=== PATIENT | male | born 1945 | race Caucasian/White ===

== ENCOUNTER 2018-06-10 20:43 | Inpatient (IN) ==
--- NOTE | 2018-06-10 22:03 | ED ---
HPI General Chief complaint: Extremity Problem,Nontraumatic Stated complaint: Joint Pain Time Seen by Provider: 06/10/18 21:54 History of Present Illness HPI narrative: This is a 73-year-old male with history of obesity, tobacco use, COPD, hyperlipidemia, hypertension, rheumatoid arthritis, presents via EMS for evaluation of pain. He reports over the past 3 months he has had progressively worsening pain primarily in the proximal arms the biceps/triceps regions. Reports that he has had some neck pain as well as intermittent left-sided chest pain as well. Reports that the chest pain is sharp, lasts for 5 minutes at a time, several times a day, no obvious aggravating or relieving factors. He reports chronic dyspnea secondary to COPD. He reports that he was seen for evaluation of the proximal arm pain 3 weeks ago at an outside hospital and he was told that it is likely his rheumatoid arthritis causing the pain. He disputes this, he reports that he has no joint pain and it does not feel like his rheumatoid arthritis pain. He also reports that his methotrexate was discontinued 3-4 months ago by his primary care physician as they wanted him to lose weight at the time. He denies any history of polymyalgia rheumatica. He is on a statin, simvastatin, which she has been on for several years. He denies any history of PE but currently he is essentially bedbound according to his brother who is at bedside. He has no other complaints at this time. Related Data Allergies Allergy/AdvReac Type Severity Reaction Status Date / Time codeine Allergy Mild MAKES ME Unverified 02/09/17 18:56 GO LOOPY benazepril Allergy Unknown Unverified 02/09/17 18:56 captopril Allergy Unknown Unverified 02/09/17 18:56 enalaprilat Allergy Unknown Unverified 02/09/17 18:56 fosinopril Allergy Unknown Unverified 02/09/17 18:56 lisinopril Allergy Unknown Unverified 02/09/17 18:56 quinapril Allergy Unknown Unverified 02/09/17 18:56 Review of Systems ROS: all other systems reviewed are negative [facility] Medical History Medical History Rheumatoid arthritis (Acute) Social History Social History Substance History: No History of Abuse Smoking Status: Current every day smoker Tobacco Type: Cigarettes How Often Do You Have a Drink Containing Alcohol: Never Recent Travel in [facility] within the Last 8 Weeks: No Recent Out of Country Travel within the Last 8 Weeks: No Immunization History Tetanus Immunization: Unsure Exam Narrative Exam Narrative: GENERAL: This is a morbidly obese disheveled male who is in no acute distress. SKIN: Warm and dry. HEAD: Atraumatic. Normocephalic. EYES: Pupils equal and round. No scleral icterus. No injection or drainage. ENT: No nasal bleeding or discharge. Mucous membranes pink and moist. NECK: Trachea midline. No JVD. CARDIOVASCULAR: Regular rate and rhythm. No murmur appreciated. RESPIRATORY: No accessory muscle use. Slight expiratory wheezing bilaterally. No crackles. GASTROINTESTINAL: Abdomen soft, non-tender, nondistended. Hepatic and splenic margins not palpable. MUSCULOSKELETAL: No obvious deformities. No clubbing. No cyanosis. No edema. NEUROLOGICAL: Awake and alert. No obvious cranial nerve deficits. Motor grossly within normal limits. Normal speech. PSYCHIATRIC: Appropriate mood and affect; insight and judgment normal. Course Consultations Consultation #1: dr rodríguez agrees to admit, vq pending Initial Documented Vital Signs Temperature 97.6 F 06/10/18 21:28 Pulse Rate 76 06/10/18 21:28 Respiratory Rate 24 06/10/18 21:28 Blood Pressure 117/79 06/10/18 21:28 Pulse Oximetry 96 06/10/18 21:28 Last Documented Vital Signs Temperature 97.6 F 06/10/18 21:28 Pulse Rate 76 06/10/18 21:28 Respiratory Rate 24 06/10/18 21:28 Blood Pressure 117/79 06/10/18 21:28 Pulse Oximetry 95 06/10/18 22:03 Medical Decision Making CARLOTA Attestation CARLOTA supervised visit: Yes Attestation: I, Dr. vega, have reviewed the advance practice practitioner's documentation and am in agreement, met with the patient face to face, made the diagnosis, and the medical decision making was done by me. *My assessment and Findings: 73 y/o male states that he has been having a couple weeks history of intermittent chest pain and bilateral upper arm weakness without associated joint pain. Lab work reveals renal failure. Patient states he is never had a kidney issue. CT pulmonary will be switched to V/Q study and patient will be admitted for further care. MDM Narrative Medical decision making narrative: The patient was placed on ECG monitoring pulse oximetry. Twelve-lead EKG obtained. Lab work, chest x-ray, CT pulmonary angiogram, CT cervical spine ordered. Full dose aspirin administered. Medical Screen Exam Complete: Yes Emergency Medical Condition: Yes Differential Diagnosis Differential Diagnosis: Polymyalgia rheumatica, radiculopathy, myositis, rhabdomyolysis, pulmonary embolism, pneumothorax, pericarditis, myocarditis Lab Data Result diagrams: 06/10/18 22:50 06/10/18 22:50 Lab Results 06/10/18 06/10/18 06/10/18 Range/Units 22:50 22:50 22:50 WBC 12.9 H (4.0-11.0) th/mm3 RBC 4.96 (4.50-5.90) mil/mm3 Hgb 15.3 (13.0-17.0) gm/dL Hct 43.7 (39.0-51.0) % MCV 88.0 (80.0-100.0) fL MCH 30.8 (27.0-34.0) pg MCHC 35.0 (32.0-36.0) % RDW 14.6 (11.6-17.2) % Plt Count 227 (150-450) th/mm3 MPV 7.9 (7.0-11.0) fL Neut % (Auto) 78.0 H (16.0-70.0) % Lymph % (Auto) 16.0 (9.0-44.0) % [place] % (Auto) 5.3 (0.0-8.0) % Eos % (Auto) 0.5 (0.0-4.0) % Baso % (Auto) 0.2 (0.0-2.0) % Neut # (Auto) 10.1 H (1.8-7.7) th/mm3 Lymph # (Auto) 2.1 (1.0-4.8) th/mm3 [place] # (Auto) 0.7 (0.0-0.9) th/mm3 Eos # (Auto) 0.1 (0.0-0.4) th/mm3 Baso # (Auto) 0.0 (0.0-0.2) th/mm3 WBC Differential . Differential Comment Auto diff final ESR 5 (0-20) mm/hr PT 10.8 (9.8-11.6) sec INR 1.1 Ratio APTT 28.0 (23.4-31.7) sec Sodium (136-145) meq/L Potassium (3.5-5.1) meq/L Chloride (98-107) meq/L Carbon Dioxide (21.0-32.0) meq/L Anion Gap (5-15) meq/L BUN (7-18) mg/dL Creatinine (0.60-1.30) mg/dL Estimated GFR (>89) mL/min Random Glucose (74-106) mg/dL Calcium (8.5-10.1) mg/dL Calcium Adj for Albumin (8.5-10.1) mg/dL Magnesium (1.5-2.5) mg/dL Total Bilirubin (0.2-1.0) mg/dL AST (15-37) U/L ALT (12-78) U/L Alkaline Phosphatase (45-117) U/L Total Creatine Kinase (39-308) U/L Troponin I (0.02-0.05) ng/mL Total Protein (6.4-8.2) g/dL Albumin (3.4-5.0) g/dL 06/10/18 Range/Units 22:50 WBC (4.0-11.0) th/mm3 RBC (4.50-5.90) mil/mm3 Hgb (13.0-17.0) gm/dL Hct (39.0-51.0) % MCV (80.0-100.0) fL MCH (27.0-34.0) pg MCHC (32.0-36.0) % RDW (11.6-17.2) % Plt Count (150-450) th/mm3 MPV (7.0-11.0) fL Neut % (Auto) (16.0-70.0) % Lymph % (Auto) (9.0-44.0) % [place] % (Auto) (0.0-8.0) % Eos % (Auto) (0.0-4.0) % Baso % (Auto) (0.0-2.0) % Neut # (Auto) (1.8-7.7) th/mm3 Lymph # (Auto) (1.0-4.8) th/mm3 [place] # (Auto) (0.0-0.9) th/mm3 Eos # (Auto) (0.0-0.4) th/mm3 Baso # (Auto) (0.0-0.2) th/mm3 WBC Differential Differential Comment ESR (0-20) mm/hr PT (9.8-11.6) sec INR Ratio APTT (23.4-31.7) sec Sodium 143 (136-145) meq/L Potassium 3.6 (3.5-5.1) meq/L Chloride 109 H (98-107) meq/L Carbon Dioxide 22.0 (21.0-32.0) meq/L Anion Gap 12 (5-15) meq/L BUN 31 H (7-18) mg/dL Creatinine 3.06 H (0.60-1.30) mg/dL Estimated GFR 20 L (>89) mL/min Random Glucose 108 H (74-106) mg/dL Calcium 7.1 L* (8.5-10.1) mg/dL Calcium Adj for Albumin 8.1 L (8.5-10.1) mg/dL Magnesium 1.6 (1.5-2.5) mg/dL Total Bilirubin 0.9 (0.2-1.0) mg/dL AST 19 (15-37) U/L ALT 19 (12-78) U/L Alkaline Phosphatase 65 (45-117) U/L Total Creatine Kinase 70 (39-308) U/L Troponin I Less than 0.02 L (0.02-0.05) ng/mL Total Protein 6.4 (6.4-8.2) g/dL Albumin 2.8 L (3.4-5.0) g/dL Imaging Data Radiologist's impression: Chest X-Ray 06/10/18 21:58 CONCLUSION: 1. Mild left lower lung zone airspace disease. Cervical Spine CT 06/11/18 00:01 CONCLUSION: 1. Degenerative change throughout the cervical spine as described above. 2. Acute bony abnormality is not seen. Discharge Plan Discharge Disposition Patient Disposition: ED Admit(ED Internal Use Only) Discharge Order Discharge Orders: ED Use Only Admit Order (Routine); Ordered 06/11/18 Ordered By: Deepthi Vega Discharge Details Diagnosis: Acute renal failure, Chest pain Physicians Team ED Provider: Deepthi Vega ED Midlevel Provider: Rick Hernandez Primary Care Provider: Domo Johnson Status ED Status: Admitted Patient
--- NOTE | 2018-06-10 22:35 | XR ---
EXAM DATE: 06/10/2018 10:32 PM EST AGE/SEX: 73 years / Male INDICATIONS: Shortness of breath. CLINICAL DATA: This is the patient's initial encounter. Patient reports that signs and symptoms have been present for 1 day and indicates a pain score of 0/10. MEDICAL/SURGICAL HISTORY: None. None. COMPARISON: No prior exams available for comparison. FINDINGS: Hazy opacity in the lateral left lower lung zone. The cardiomediastinal contours are unremarkable. O sseous structures are intact. CONCLUSION: 1. Mild left lower lung zone airspace disease. Electronically signed by: Teddy Chambers MD Board Certified Radiologist 06/10/2018 10:34 PM E
[2018-06-10 23:18] LABS: Baso % (Auto) 0.2 % (0.0-2.0); Eos # (Auto) 0.1 th/mm3 (0.0-0.4); Eos % (Auto) 0.5 % (0.0-4.0); Hematocrit 43.7 % (39.0-51.0); Hemoglobin 15.3 gm/dL (13.0-17.0); Lymph # (Auto) 2.1 th/mm3 (1.0-4.8); Mean Corpuscular Hemoglobin 30.8 pg (27.0-34.0); Mean Platelet Volume 7.9 fL (7.0-11.0); Mono # (Auto) 0.7 th/mm3 (0.0-0.9); Mono % (Auto) 5.3 % (0.0-8.0); Neut # (Auto) 10.1 th/mm3 (1.8-7.7); Platelet Count 227 th/mm3 (150-450); Red Blood Count 4.96 mil/mm3 (4.50-5.90); Red Cell Distribution Width 14.6 % (11.6-17.2); White Blood Count 12.9 th/mm3 (4.0-11.0)
[2018-06-10] MEDS ORDERED: Sod Chloride 0.9% Inj 1,000 ML IV.SIG SCH (23:45)
[2018-06-10 23:49] LABS: INR 1.1 Ratio; Prothrombin Time 10.8 sec (9.8-11.6)
[2018-06-10 23:50] LABS: Alanine Aminotransferase 19 U/L (12-78); Albumin 2.8 g/dL (3.4-5.0); Alkaline Phosphatase 65 U/L (45-117); Anion Gap 12 meq/L (5-15); Aspartate Aminotransferase 19 U/L (15-37); Blood Urea Nitrogen 31 mg/dL (7-18); Calcium 7.1 mg/dL (8.5-10.1); Chloride 109 meq/L (98-107); Glomerular Filtration Rate 20 mL/min (>89); Glucose,Random 108 mg/dL (74-106); Magnesium 1.6 mg/dL (1.5-2.5); Potassium 3.6 meq/L (3.5-5.1); Sodium 143 meq/L (136-145); Total Protein 6.4 g/dL (6.4-8.2)
[2018-06-10 23:51] LABS: Creatine Kinase 70 U/L (39-308)
--- NOTE | 2018-06-11 00:24 | CT ---
EXAM DATE: 06/11/2018 12:14 AM EST AGE/SEX: 73 years / Male INDICATIONS: Neck pain. CLINICAL DATA: This is the patient's initial encounter. Patient reports that signs and symptoms have been present for 1 day and indicates a pain score of 7/10. MEDICAL/SURGICAL HISTORY: Rheumatoid arthritis. None. RADIATION DOSE: 27.10 CTDI (mGy) COMPARISON: No prior exams available for comparison. TECHNIQUE: Contiguous axial images were obtained using helical multirow detector technique. The vol umetric data was post-processed with multiplanar reconstruction in oblique axial, sagittal, and coron al planes. Using automated exposure control and adjustment of the mA and/or kV according to patient s ize, radiation dose was kept as low as reasonably achievable to obtain optimal diagnostic quality juliana ges. DICOM format image data is available electronically for review and comparison. FINDINGS: Vertebrae: Normal vertebral body height. Alignment: Normal. No subluxation. C2-3: The bony spinal canal is normal in size. No evidence of disc bulge or herniation. The neural foramina are bilaterally patent. There is bilateral facet hypertrophy being worse on the right. C3-4: The bony spinal canal is normal in size. There is mild posterior osteophytic ridging seen at t he left lateral recess region without significant stenosis. No evidence of disc bulge or herniation. There is bilateral facet hypertrophy. There is mild narrowing of the left neural foramina at the rig ht neural foramina is patent. C4-5: The disc demonstrates decreased height. There is slight bulging without significant stenosis. There is facet hypertrophy being worse on the left. The neural foramina are grossly patent. C5-6: There appears to be fusion at this level. Significant impression on thecal sac is not seen. Th e neural foramina patent bilaterally. There is some degree of fusion at the facet joints. C6-7: The bony spinal canal is normal in size. No evidence of disc bulge or herniation. The neural foramina are bilaterally patent. There is facet hypertrophy. C7-T1: The bony spinal canal is normal in size. No evidence of disc bulge or herniation. The neura l foramina are bilaterally patent. There is facet hypertrophy. CONCLUSION: 1. Degenerative change throughout the cervical spine as described above. 2. Acute bony abnormality is not seen. Electronically signed by: Domo Guzman MD Board Certified Radiologist 06/11/2018 12:23 AM EST
[2018-06-11] MEDS ORDERED: Acetaminophen 325 MG Tablet PO PRN (02:10)
[2018-06-11] MEDS ORDERED: Bisacodyl 10 MG Supp RECTAL PRN (02:10)
--- NOTE | 2018-06-11 02:27 | NM ---
EXAM DATE: 06/11/2018 2:02 AM EST AGE/SEX: 73 years / Male INDICATIONS: For 3 months patient has had arm pain, neck pain and left chest pain with chronic dyspn ea. CLINICAL DATA: This is the patient's initial encounter. Patient reports that signs and symptoms have been present for 3 months and indicates a pain score of 5/10. MEDICAL/SURGICAL HISTORY: Rheumatoid arthritis. Chronic obstructive pulmonary disease. Hypert ension. Smoker. None. COMPARISON: [facility], CHEST 1V SINGLE AP, 06/10/2018. . DOSE: 1 mCi Tc99m DTPA aerosol 8.8 mCi Tc99m MAA IV TECHNIQUE: Following five minutes of tidal breathing of DTPA aerosol, planar images of the lungs wer e performed in eight projections. The patient was then injected with MAA, and eight-view perfusion s can was performed. FINDINGS: There is a heterogeneous pattern of aerosol delivery to the periphery of both lungs. The perfusion lung scan demonstrates a homogenous pattern of uptake in both lungs. There is a small s ubsegmental defect seen at the posterior right lower lung. This appears mass. No mismatch defects are seen. CONCLUSION: Low probability for pulmonary embolus. Electronically signed by: Domo Guzman MD Board Certified Radiologist 06/11/2018 2:26 AM EST
[2018-06-11 04:02] LABS: Creatine Kinase 130 U/L (39-308)
[2018-06-11] MEDS: Sod Chloride 0.9% Inj 1,000 ML IV.CONT SCH ×2 (05:53→17:25)
--- NOTE | 2018-06-11 10:17 | ECG ---
Date Performed: 06/11/2018 Time Performed: 03:41:10 PTAGE: 73 years EKG: Sinus rhythm NORMAL ECG Since the PREVIOUS TRACING , no significant change noted PREVIOUS TRACIN06/10/2018 22.29 DOCTOR: Christopher Edgar Interpretating Date/Time 06/11/2018 10:15:43
--- NOTE | 2018-06-11 10:17 | ECG ---
Date Performed: 06/10/2018 Time Performed: 22:29:11 PTAGE: 73 years EKG: Sinus rhythm NORMAL ECG Since the PREVIOUS TRACING , no significant change noted PREVIOUS TRACIN11/19/2005 16.59 DOCTOR: Christopher Edgar Interpretating Date/Time 06/11/2018 10:15:56
--- NOTE | 2018-06-11 11:01 | P.CONNP ---
<RafTianna - Last Filed: 06/11/18 10:46> History of Present Illness Service: Nephrology Consult date: 06/11/18 Requesting Physician: Moy Bradley Reason for Consult: Acute kidney injury Primary Care Provider: Domo Johnson History of Present Illness: Patient is a 73 year old male with past medical history of COPD, HTN, HLD, and RA. Presented to the emergency with increasing upper extremity pain and weakness. This has been going on for about six months but has progressively gotten worse. Also complaining of left sided chest pain which is stabbing. Has a been going on for 4-5 months. Nephrology is consulted for acute kidney injury with a creatinine of 3.06. Does not report previous history of chronic kidney disease. Reports chronic shortness of breath which is slightly worse than normal, chest pain, and Bilateral upper extremity pain. Denies any nausea , vomiting or diarrhea. But reports that possibly has not been taking in very many oral fluids. Also reports that he has not urinated since yesterday and does not have the urge. Review of Systems All other systems reviewed negative except as stated in HPI PMFSH - History History Provided By: Patient - Medical History Medical History: Medical History (Last Reviewed 06/11/18 @ 09:45 by Maryuri Guzman) Rheumatoid arthritis - Tobacco History Second Hand Smoke Exposure: Yes Tobacco Use In Past 30 Days: Yes Smoking Status: Heavy tobacco smoker Tobacco Type: Cigarettes - Alcohol History How Often Do You Have a Drink Containing Alcohol: Monthly or less - Substance Use History Substance History: No History of Abuse - Travel History Recent Travel in the [place] Within the Last 8 Weeks: No Recent Travel Out of the Country Within the Last 8 Weeks: No - Immunization History Tetanus Immunization: Unsure Hx Influenza Vaccine This Season: No Medications and Allergies Allergies Allergy/AdvReac Type Severity Reaction Status Date / Time codeine Allergy Mild MAKES ME Unverified 02/09/17 18:56 GO LOOPY benazepril Allergy Unknown Unverified 02/09/17 18:56 captopril Allergy Unknown Unverified 02/09/17 18:56 enalaprilat Allergy Unknown Unverified 02/09/17 18:56 fosinopril Allergy Unknown Unverified 02/09/17 18:56 lisinopril Allergy Unknown Unverified 02/09/17 18:56 quinapril Allergy Unknown Unverified 02/09/17 18:56 Home Medications Medication Instructions Recorded Confirmed Type albuterol sulfate [Ventolin HFA] 2 puff INHALATION QID PRN 06/11/18 06/11/18 History hydrocodone-acetaminophen 1 tab PO TID PRN 06/11/18 06/11/18 History hydroxychloroquine 200 mg PO DAILY 06/11/18 06/11/18 History methotrexate sodium 15 mg PO QWEEK 06/11/18 06/11/18 History naproxen 500 mg PO BID PRN 06/11/18 06/11/18 History omeprazole 20 mg PO DAILY 06/11/18 06/11/18 History prednisone 5 mg PO DAILY 06/11/18 06/11/18 History pregabalin [Lyrica] 200 mg PO BID 06/11/18 06/11/18 History sertraline 25 mg PO DAILY 06/11/18 06/11/18 History simvastatin 20 mg PO QPM 06/11/18 06/11/18 History tizanidine 4 mg PO TID 06/11/18 06/11/18 History valsartan-hydrochlorothiazide 1 tab PO DAILY 06/11/18 06/11/18 History Active Medications: Active Medications Acetaminophen (Tylenol) 650 mg PO Q4H PRN PRN Reason: Temp > 100.4 Al Hydroxide/Mg Hydroxide (Milk Of Magnesia Liq) 30 ml PO Q12H PRN PRN Reason: Mild Constipation Bisacodyl (Dulcolax Supp) 10 mg RECTAL DAILY PRN PRN Reason: SEVERE CONSITIPATION Sodium Chloride (Ns Inj) 1,000 mls @ 100 mls/hr IV.CONT .Q10H DOYLE Last Admin: 06/11/18 05:53 Dose: 100 mls/hr Lactulose (Lactulose Liq) 30 ml PO DAILY PRN PRN Reason: SEVERE CONSITIPATION Ondansetron HCl (Zofran Inj) 4 mg IV.PUSH Q6H PRN PRN Reason: NAUSEA OR VOMITING Sennosides (Senokot) 17.2 mg PO Q12H PRN PRN Reason: Moderate Constipation Sodium Chloride (Ns Flush) 2 ml IV.FLUSH BID DOYLE Sodium Chloride (Ns Flush) 2 ml IV.FLUSH PRN PRN PRN Reason: FLUSH AFTER USING IV ACCESS Exam Vital signs: Vital Signs 06/10/18 21:28 06/10/18 21:58 06/10/18 22:03 Temperature 97.6 F Pulse Rate 76 76 Respiratory Rate 24 Blood Pressure 117/79 128/71 Pulse Oximetry 96 96 95 06/11/18 03:15 06/11/18 04:00 06/11/18 08:00 Temperature 97.1 F L 97.5 F L Pulse Rate 72 63 69 Respiratory Rate 18 16 Blood Pressure 122/56 L 116/54 L 112/55 L Pulse Oximetry 94 L 94 L 93 L 06/11/18 08:02 Temperature Pulse Rate Respiratory Rate Blood Pressure Pulse Oximetry 93 L Intake & Output 06/10/18 06/11/18 06/11/18 18:59 06:59 18:59 Intake Total 1480 / 1480 Balance 1480 / 1480 Weight 148.1 kg Intake: IV 1000 / 1000 NS Inj 1,000 ML @ 1000 mls/hr 1000 / 1000 IV.SIG BOLUS DOYLE Rx#:[id number] Oral 480 / 480 Other: Date of Last Bowel Movement 06/10/18 Weight On Admission 147.418 kg Narrative: GENERAL: Alert and oriented. Obese. No obvious distress. SKIN: Warm and dry. NECK: Supple, trachea midline. No JVD CARDIOVASCULAR: Regular rate and rhythm without murmurs, gallops, or rubs. RESPIRATORY: Breath sounds equal bilaterally. No accessory muscle use. GASTROINTESTINAL: Abdomen soft, non-tender. Positive bowel sounds. MUSCULOSKELETAL: No cyanosis, or edema. BACK: Nontender without obvious deformity. No CVA tenderness. Results - Lab Results 06/10/18 22:50 06/10/18 22:50 Most recent lab results Calcium 7.1 mg/dL (8.5-10.1) L* 06/10/18 22:50 Magnesium 1.6 mg/dL (1.5-2.5) 06/10/18 22:50 - Image Kidney/bladder ultrasound: pending Assessment and Plan - Assessment (1) Acute renal failure Code(s): N17.9 - Acute kidney failure, unspecified Status: Acute Plan: Acute renal failure with creatinine of 3.09 MELISA prerenal vs ATN from possible poor intake or medication. On naproxen and Valsartan/HCTZ at home. Does not report any chronic kidney disease and no baseline available Renal ultrasound ordered UA, Urine creatinine, osmolarity, and sodium ordered Reports that he has not had any urinary output since yesterday. Will order bladder scan may need indwelling [place] catheter if has retention. Recommend to continue IVF Will monitor urinary output and BMP Labs ordered for AM (2) Rheumatoid arthritis Code(s): M06.9 - Rheumatoid arthritis, unspecified Status: Acute Plan: Possibly having flare with bilateral upper extremity discomfort. (3) Chest pain Code(s): R07.9 - Chest pain, unspecified Status: Acute Plan: Complaining of intermittent chest pain. Troponin have remained negative. (4) Chronic obstructive lung disease Code(s): J44.9 - Chronic obstructive pulmonary disease, unspecified Status: Acute Plan: Has chronic shortness of breath. (5) Hypertension Code(s): I10 - Essential (primary) hypertension Status: Acute Plan: Well controlled. Not on any blood pressure medication currently. <Abel Overton - Last Filed: 06/11/18 21:02> History of Present Illness Primary Care Provider: Domo Johnson [facility] - Medical History Medical History: Medical History (Last Reviewed 06/11/18 @ 09:45 by Maryuri Guzman) Rheumatoid arthritis Medications and Allergies Active Medications: Active Medications Acetaminophen (Tylenol) 650 mg PO Q4H PRN PRN Reason: Temp > 100.4 Hydrocodone Bitart/Acetaminophen (Ora 10/325) 1 tab PO TID PRN PRN Reason: Pain 1-10 Al Hydroxide/Mg Hydroxide (Milk Of Magnesia Liq) 30 ml PO Q12H PRN PRN Reason: Mild Constipation Bisacodyl (Dulcolax Supp) 10 mg RECTAL DAILY PRN PRN Reason: SEVERE CONSITIPATION Heparin Sodium (Porcine) (Heparin Inj) 5,000 units SQ Q8HR DOYLE Lactulose (Lactulose Liq) 30 ml PO DAILY PRN PRN Reason: SEVERE CONSITIPATION Ondansetron HCl (Zofran Inj) 4 mg IV.PUSH Q6H PRN PRN Reason: NAUSEA OR VOMITING Pantoprazole Sodium (Protonix) 20 mg PO DAILY DO[facility] Prednisone (Deltasone) 5 mg PO DAILY DOYLE Last Admin: 06/11/18 18:22 Dose: 5 mg Pregabalin (Lyrica) 200 mg PO BID DOYLE Sennosides (Senokot) 17.2 mg PO Q12H PRN PRN Reason: Moderate Constipation Sertraline HCl (Zoloft) 25 mg PO DAILY [facility] Last Admin: 06/11/18 18:21 Dose: 25 mg Sodium Chloride (Ns Flush) 2 ml IV.FLUSH BID [facility] Last Admin: 06/11/18 13:51 Dose: Not Given Sodium Chloride (Ns Flush) 2 ml IV.FLUSH PRN PRN PRN Reason: FLUSH AFTER USING IV ACCESS Tizanidine HCl (Zanaflex) 4 mg PO TID [facility] Exam Vital signs: Vital Signs 06/10/18 21:28 06/10/18 21:58 06/10/18 22:03 Temperature 97.6 F Pulse Rate 76 76 Respiratory Rate 24 Blood Pressure 117/79 128/71 Pulse Oximetry 96 96 95 06/11/18 03:15 06/11/18 04:00 06/11/18 08:00 Temperature 97.1 F L 97.5 F L Pulse Rate 72 63 69 Respiratory Rate 18 16 Blood Pressure 122/56 L 116/54 L 112/55 L Pulse Oximetry 94 L 94 L 93 L 06/11/18 08:02 06/11/18 12:00 06/11/18 15:20 Temperature 97.7 F Pulse Rate 67 68 Respiratory Rate 16 20 Blood Pressure 95/53 L 106/56 L Pulse Oximetry 93 L 92 L 97 Intake & Output 06/11/18 06/11/18 06/12/18 06:59 18:59 06:59 Intake Total 1480 / 1480 1480 / 1480 Output Total 350 / 350 Balance 1480 / 1480 1130 / 1130 Weight 148.1 kg Intake: IV 1000 / 1000 1000 / 1000 NS Inj 1,000 ML @ 100 mls/hr IV 1000 / 1000 .CONT .Q10H [facility] Rx#:[id number] NS Inj 1,000 ML @ 1000 mls/hr 1000 / 1000 IV.SIG BOLUS [facility] [place] Rx#:[id number] Oral 480 / 480 480 / 480 Output: Urine 350 / 350 Other: Date of Last Bowel Movement 06/10/18 06/10/18 Weight On Admission 147.418 kg Results - Lab Results 06/11/18 11:23 06/11/18 11:23 Most recent lab results Calcium 8.6 mg/dL (8.5-10.1) D 06/11/18 11:23 Phosphorus 3.5 mg/dL (2.5-4.9) 06/11/18 11:23 Magnesium 1.6 mg/dL (1.5-2.5) 06/10/18 22:50 Assessment and Plan - Assessment (1) Acute renal failure Code(s): N17.9 - Acute kidney failure, unspecified Status: Acute Plan: Patient seen and examined, agree with above. Patient has MELISA, possibly pre renal and also related to NSAID. Told to avoid NSAID,continue IVF. Bladder scan, urine sodium, check UA to see if has proteinuria. (2) Rheumatoid arthritis Code(s): M06.9 - Rheumatoid arthritis, unspecified Status: Acute (3) Chest pain Code(s): R07.9 - Chest pain, unspecified Status: Acute (4) Chronic obstructive lung disease Code(s): J44.9 - Chronic obstructive pulmonary disease, unspecified Status: Acute (5) Hypertension Code(s): I10 - Essential (primary) hypertension Status: Acute
--- NOTE | 2018-06-11 12:31 | US ---
EXAM DATE: 06/11/2018 12:27 PM EST AGE/SEX: 73 years / Male INDICATIONS: Increased BUN and creatinine. CLINICAL DATA: This is the patient's initial encounter. Patient reports that signs and symptoms have been present for 1 day and indicates a pain score of 0/10. MEDICAL/SURGICAL HISTORY: . Obesity. Smoker. COPD. Hyperlipidemia. Hypertension. Rheumatoi d arthritis. None. COMPARISON: No prior exams available for comparison. MEASUREMENTS: Right Kidney:__11.3 x 6.2 x 4.9 cm Left Kidney:__11.5 x 4.8 x 4.8 cm FINDINGS: Right Kidney: Normal echogenicity and cortical thickness. No mass or hydronephrosis. Left Kidney: Normal echogenicity and cortical thickness. No mass or hydronephrosis. Bladder: Within normal limits given the degree of distension. Other: None. CONCLUSION: 1. Negative renal sonogram. Electronically signed by: Edel Lambert MD Board Certified Radiologist 06/11/2018 12:29 PM EST
[2018-06-11 12:48] LABS: Hematocrit 46.6 % (39.0-51.0); Hemoglobin 15.3 gm/dL (13.0-17.0); Mean Corpuscular HGB Conc 32.8 % (32.0-36.0); Mean Corpuscular Hemoglobin 29.9 pg (27.0-34.0); Mean Corpuscular Volume 90.9 fL (80.0-100.0); Mean Platelet Volume 8.4 fL (7.0-11.0); Platelet Count 260 th/mm3 (150-450); Red Blood Count 5.12 mil/mm3 (4.50-5.90); Red Cell Distribution Width 15.2 % (11.6-17.2); White Blood Count 12.4 th/mm3 (4.0-11.0)
[2018-06-11 13:18] LABS: Phosphorus 3.5 mg/dL (2.5-4.9)
[2018-06-11 13:20] LABS: Creatine Kinase 102 U/L (39-308)
[2018-06-11 16:08] LABS: Carbon Dioxide 19.5 meq/L (21.0-32.0)
[2018-06-11 16:09] LABS: Calcium 8.6 mg/dL (8.5-10.1)
--- NOTE | 2018-06-11 17:40 | P.HPIM ---
History of Present Illness Primary Care Physician: pain all over but mostly started approximately 1 year ago with left shoulder pain and tingling in the left arm stopping at the elbow with associated soreness.Domo Johnson Patient is a pleasant 73-year-old male with past medical history of rheumatoid arthritis, hyperlipidemia, reflux disease, and hypertension who presents to the emergency department with diffuse complaints of upper extremity pain and weakness. Patient reports his symptoms are approximately 6 months old but it progressively worsened over the last 3-4 months prompting him to come to the emergency department. Patient reports that he initially experienced afterwards symptoms progressed to the right side of his head and body and has been progressive ever since. Review of systems positive for headache, associated chest pain, shortness of breath (patient reports chronic shortness of breath but it may have slightly worsened). Patient denied slurred speech, changes in hearing, no changes in vision, loss of consciousness, palpitations, near-syncope , trauma, or new skin changes. Of note patient reports that he was previously taking methotrexate and that it was discontinued by an outpatient doctor for unclear reasons as patient believes it had to do with him needing to lose weight. In emergency department patient had imaging including a CT of the spine which was negative for dislocation or fracture only degenerative changes throughout the cervical spine. Pulmonary perfusion testing negative for evidence of pulmonary embolism. Patient noted to have evidence of acute kidney injury without prior history of renal dysfunction. Patient was started on IV fluid hydration. Diagnosis (1) Acute renal failure: (2) Rheumatoid arthritis: (3) Chest pain: (4) Chronic obstructive lung disease: (5) Hypertension: Inpatient Certification Inpatient Certification: I certify that the inpatient services were ordered in accordance with Medicare regulations governing the order. This includes certification that hospital inpatient services are reasonable and necessary and in the case of services not specified as inpatient-only under 42 CFR 419.22(n), that they are appropriately provided as inpatient services in accordance to with the 2-midnight benchmark under 43 CFR 412.3(e) Estimated Total Length of Stay (Days): 3 Plans for Post Hospital Care: Home Review of Systems Review of Systems: all other systems reviewed are negative [facility] Medical History Medical History Rheumatoid arthritis (Acute) Social History Social History Substance History: No History of Abuse Second Hand Smoke Exposure: Yes Smoking Status: Current every day smoker Tobacco Type: Cigarettes How Often Do You Have a Drink Containing Alcohol: Monthly or less Recent Travel in [place] within the Last 8 Weeks: No Recent Out of Country Travel within the Last 8 Weeks: No Immunization History Tetanus Immunization: Unsure Hx Influenza Vaccine This Season: No Medications and Allergies Allergies Allergy/AdvReac Type Severity Reaction Status Date / Time codeine Allergy Mild MAKES ME Unverified 02/09/17 18:56 GO LOOPY benazepril Allergy Unknown Unverified 02/09/17 18:56 captopril Allergy Unknown Unverified 02/09/17 18:56 enalaprilat Allergy Unknown Unverified 02/09/17 18:56 fosinopril Allergy Unknown Unverified 02/09/17 18:56 lisinopril Allergy Unknown Unverified 02/09/17 18:56 quinapril Allergy Unknown Unverified 02/09/17 18:56 Home Medications Medication Instructions Recorded Confirmed Type albuterol sulfate [Ventolin HFA] 2 puff INHALATION QID PRN 06/11/18 06/11/18 History hydrocodone-acetaminophen 1 tab PO TID PRN 06/11/18 06/11/18 History hydroxychloroquine 200 mg PO DAILY 06/11/18 06/11/18 History methotrexate sodium 15 mg PO QWEEK 06/11/18 06/11/18 History naproxen 500 mg PO BID PRN 06/11/18 06/11/18 History omeprazole 20 mg PO DAILY 06/11/18 06/11/18 History prednisone 5 mg PO DAILY 06/11/18 06/11/18 History pregabalin [Lyrica] 200 mg PO BID 06/11/18 06/11/18 History sertraline 25 mg PO DAILY 06/11/18 06/11/18 History simvastatin 20 mg PO QPM 06/11/18 06/11/18 History tizanidine 4 mg PO TID 06/11/18 06/11/18 History valsartan-hydrochlorothiazide 1 tab PO DAILY 06/11/18 06/11/18 History Active Medications: Active Medications Acetaminophen (Tylenol) 650 mg PO Q4H PRN PRN Reason: Temp > 100.4 Al Hydroxide/Mg Hydroxide (Milk Of Magnesia Liq) 30 ml PO Q12H PRN PRN Reason: Mild Constipation Bisacodyl (Dulcolax Supp) 10 mg RECTAL DAILY PRN PRN Reason: SEVERE CONSITIPATION Sodium Chloride (Ns Inj) 1,000 mls @ 100 mls/hr IV.CONT .Q10H ON LICENSE OF [facility] Last Admin: 06/11/18 17:25 Dose: 100 mls/hr Lactulose (Lactulose Liq) 30 ml PO DAILY PRN PRN Reason: SEVERE CONSITIPATION Ondansetron HCl (Zofran Inj) 4 mg IV.PUSH Q6H PRN PRN Reason: NAUSEA OR VOMITING Sennosides (Senokot) 17.2 mg PO Q12H PRN PRN Reason: Moderate Constipation Sodium Chloride (Ns Flush) 2 ml IV.FLUSH BID ON LICENSE OF [facility] Last Admin: 06/11/18 13:51 Dose: Not Given Sodium Chloride (Ns Flush) 2 ml IV.FLUSH PRN PRN PRN Reason: FLUSH AFTER USING IV ACCESS Physical Exam Vital signs: Last Vital Signs Temp 97.7 F 06/11/18 12:00 Pulse 68 06/11/18 15:20 Resp 20 06/11/18 15:20 BP 106/56 L 06/11/18 15:20 Pulse Ox 97 06/11/18 15:20 Intake & Output 06/09/18 06/10/18 06/11/18 06/12/18 06:59 06:59 06:59 06:59 Intake Total 1480 / 1480 1000 / 1000 Output Total 250 / 250 Balance 1480 / 1480 750 / 750 Weight 148.1 kg General: No acute distress, conversational. Obese male HEENT: EOMI, PERRLA Cardiovascular: S1/S2 Respiratory: Clear to auscultation bilaterally but due to body habitus unable to auscultate base particularly well Gastrointestinal: Soft, nontender, nondistended, no guarding or rebound Extremity: No lower extremity calf tenderness Neurology: Power 4/5 upper extremity bilaterally. V1, V2, V3 sensation intact. No facial droop. No slurred speech. Results Labs CBC & Chem 7: 06/11/18 11:23 06/11/18 11:23 Imaging Impressions Chest X-Ray 06/10/18 21:58 CONCLUSION: 1. Mild left lower lung zone airspace disease. Abdomen/Bladder Ultrasound 06/11/18 00:00 CONCLUSION: 1. Negative renal sonogram. Cervical Spine CT 06/11/18 00:01 CONCLUSION: 1. Degenerative change throughout the cervical spine as described above. 2. Acute bony abnormality is not seen. Pulmonary Perfusion Imaging 06/11/18 23:55 CONCLUSION: Low probability for pulmonary embolus. Caprini VTE Risk Assessment Caprini VTE Risk Assessment: Moderate/High Risk (score >= 2) Caprini Risk Assessment Model: Point Value = 1 Point Value = 2 Point Value = 3 Point Value = 5 Age 41-60 Minor surgery BMI > 25 kg/m2 Swollen legs Varicose veins or History of unexplained or recurrent spontaneous Oral contraceptives or hormone replacement Sepsis (< 1 month) Serious lung disease, including pneumonia (< 1 month) Abnormal pulmonary function Acute myocardial infarction Congestive heart failure (< 1 month) History of inflammatory bowel disease Medical patient at bed rest Age 61-74 Arthroscopic surgery Major open surgery (> 45 min) Laparoscopic surgery (> 45 min) Malignancy Confined to bed (> 72 hours) Immobilizing plaster cast Central venous access Age >= 75 History of VTE Family history of VTE Factor V Leiden Prothrombin [id number] Lupus anticoagulant Anticardiolipin antibodies Elevated serum homocysteine Heparin-induced thrombocytopenia Other congenital or acquired thrombophilia Stroke (< 1 month) Elective arthroplasty Hip, pelvis, or leg fracture Acute spinal cord injury (< 1 month) Prophylaxis Regimen: Total Risk Factor Score Risk Level Prophylaxis Regimen 0-1 Low Early ambulation 2 Moderate Order ONE of the following: *Sequential Compression Device (SCD) *Heparin 5000 units SQ BID 3-4 Higher Order ONE of the following medications: *Heparin 5000 units SQ TID *Enoxaparin/Lovenox 40 mg SQ daily (WT < 150 kg, CrCl > 30 mL/min) *Enoxaparin/Lovenox 30 mg SQ daily (WT < 150 kg, CrCl > 10-29 mL/min) *Enoxaparin/Lovenox 30 mg SQ BID (WT < 150 kg, CrCl > 30 mL/min) AND/OR *Sequential Compression Device (SCD) 5 or more Highest Order ONE of the following medications: *Heparin 5000 units SQ TID (Preferred with Epidurals) *Enoxaparin/Lovenox 40 mg SQ daily (WT < 150 kg, CrCl > 30 mL/min) *Enoxaparin/Lovenox 30 mg SQ daily (WT < 150 kg, CrCl > 10-29 mL/min) *Enoxaparin/Lovenox 30 mg SQ BID (WT < 150 kg, CrCl > 30 mL/min) AND *Sequential Compression Device (SCD) Assessment and Plan (1) Acute renal failure: Code(s): N17.9 - Acute kidney failure, unspecified Status: Acute (2) Rheumatoid arthritis: Code(s): M06.9 - Rheumatoid arthritis, unspecified Status: Acute (3) Chest pain: Code(s): R07.9 - Chest pain, unspecified Status: Acute (4) Chronic obstructive lung disease: Code(s): J44.9 - Chronic obstructive pulmonary disease, unspecified Status: Acute (5) Hypertension: Code(s): I10 - Essential (primary) hypertension Status: Acute Plan Patient is a 73-year-old male with multiple medical problems including rheumatoid arthritis, hypertension, and reflux disease presented to emergency department with complaints of generalized upper extremity pain and weakness along with chest pain found to have acute kidney injury admitted for medical workup. Nephrology: Acute kidney injury Patient reports that he has not taken much p.o. in recent days as well as noticed reduced urine output Renal ultrasound to rule out obstruction Continue IV fluid hydration Nephrology consulted and recommendations appreciated via EMR Urine studies currently pending Hold CALVIN/our medications in the setting of acute kidney injury. Avoid nephrotoxic agents including naproxen cardiology: Hyperlipidemia, hypertension Statin induced myopathy is a possibility in this case. Will hold simvastatin for now and monitor CPK level in morning Neurology: Upper extremity pain and weakness Suspect that patient's underlying rheumatoid arthritis in combination with possible myositis may be playing a role in his pain Resume prednisone 5 mg daily, Lyrica 200 mg daily CPK level to rule out rhabdomyolysis which could also contribute to acute kidney injury Rheumatology: Rheumatoid arthritis Patient reports that he has been off methotrexate for approximately 3-4 months. Outpatient follow-up on discharge with PMD. Check vitamin D level Gastroenterology: GERD Continue PPI Psychiatry: Depression Continue sertraline 25 mg p.o. daily CODE STATUS: Full code DVT prophylaxis Disposition: Medical surgery unit Diet: Cardiac H&P: Quality VTE Deep Vein Thrombosis/Pulmonary Embolism Present on Admission: No _ (1) Acute renal failure Qualifiers: Acute renal failure type: (2) Rheumatoid arthritis Qualifiers: Rheumatoid arthritis location: Rheumatoid factor presence: Laterality: (3) Chest pain Qualifiers: Chest pain type: Ischemic chest pain type: (4) Chronic obstructive lung disease Qualifiers: COPD type: Chronic bronchitis type: Emphysema type: (5) Hypertension Qualifiers: Hypertension type:
--- NOTE | 2018-06-11 18:01 | ECG ---
Date Performed: 06/11/2018 Time Performed: 10:45:36 PTAGE: 73 years EKG: Sinus rhythm LOW QRS VOLTAGE IN EXTREMITY LEADS Since the previous tracing, no significant change noted BORDERLIN E ECG PREVIOUS TRACING : 06/11/2018 03.41 DOCTOR: Christopher Edgar Interpretating Date/Time 06/11/2018 18:01:13
[2018-06-11] MEDS: Sertraline 50 MG Tablet PO SCH (18:21)
[2018-06-11] MEDS: predniSONE 5 MG Tablet PO SCH (18:22)
[2018-06-11] MEDS: Heparin - SQ 10,000 UNITS/ML Vial SQ SCH (21:05)
[2018-06-11 21:38] LABS: Bilirubin,Urine Negative (Negative); Clarity,Urine Clear (Clear); Color,Urine Yellow (Yellw/Straw); Glucose,Urine (UA) Negative (Negative); Hyaline Casts,Urine 8 /lpf (0-3); Leukocyte Esterase,Urine Negative (Negative); Mucus,Urine Few /lpf (Occasional); Nitrite,Urine Negative (Negative); Specific Gravity,Urine 1.014 (1.002-1.035); Squamous Epithelial Cell,Urine <1 /hpf (0-5)
[2018-06-11] MEDS ORDERED: Sod Chloride 0.9% Inj 1,000 ML IV.CONT SCH (21:53)
[2018-06-12 00:58] LABS: Sodium,Urine Random 69 meq/L
[2018-06-12 01:07] LABS: Creatinine,Urine Random 179 mg/dL (27-300)
[2018-06-12] MEDS: Sod Chloride 0.9% Inj 1,000 ML IV.CONT SCH ×2 (05:25→06:18)
[2018-06-12] MEDS: Heparin - SQ 10,000 UNITS/ML Vial SQ SCH ×3 (06:11→22:26)
[2018-06-12 07:35] LABS: Baso % (Auto) 0.3 % (0.0-2.0); Eos # (Auto) 0.1 th/mm3 (0.0-0.4); Eos % (Auto) 2.2 % (0.0-4.0); Hematocrit 37.1 % (39.0-51.0); Hemoglobin 12.8 gm/dL (13.0-17.0); Lymph # (Auto) 1.6 th/mm3 (1.0-4.8); Lymph % (Auto) 29.2 % (9.0-44.0); Mean Corpuscular HGB Conc 34.4 % (32.0-36.0); Mean Corpuscular Hemoglobin 30.4 pg (27.0-34.0); Mean Corpuscular Volume 88.4 fL (80.0-100.0); Mean Platelet Volume 7.9 fL (7.0-11.0); Mono # (Auto) 0.4 th/mm3 (0.0-0.9); Mono % (Auto) 6.9 % (0.0-8.0); Neut # (Auto) 3.3 th/mm3 (1.8-7.7); Neut % (Auto) 61.4 % (16.0-70.0); Platelet Count 154 th/mm3 (150-450); Red Cell Distribution Width 14.5 % (11.6-17.2); White Blood Count 5.4 th/mm3 (4.0-11.0)
[2018-06-12 07:42] LABS: INR 1.1 Ratio; Prothrombin Time 10.7 sec (9.8-11.6)
[2018-06-12 08:02] LABS: Alanine Aminotransferase 20 U/L (12-78); Albumin 2.8 g/dL (3.4-5.0); Alkaline Phosphatase 62 U/L (45-117); Anion Gap 6 meq/L (5-15); Aspartate Aminotransferase 19 U/L (15-37); Blood Urea Nitrogen 34 mg/dL (7-18); Calcium 7.9 mg/dL (8.5-10.1); Carbon Dioxide 25.9 meq/L (21.0-32.0); Chloride 108 meq/L (98-107); Glomerular Filtration Rate 39 mL/min (>89); Glucose,Random 110 mg/dL (74-106); Magnesium 1.9 mg/dL (1.5-2.5); Phosphorus 2.5 mg/dL (2.5-4.9); Potassium 4.3 meq/L (3.5-5.1); Sodium 140 meq/L (136-145); Total Protein 6.3 g/dL (6.4-8.2)
[2018-06-12 08:03] LABS: Creatine Kinase 64 U/L (39-308)
[2018-06-12] MEDS: predniSONE 5 MG Tablet PO SCH (08:17)
[2018-06-12] MEDS: Sertraline 50 MG Tablet PO SCH (08:17)
[2018-06-12] MEDS: Pantoprazole Sodium 20 MG DR Tablet PO SCH (08:17)
--- NOTE | 2018-06-12 10:47 | P.PNNP ---
Subjective Interval history: Patient is alert, complaining of wrist and back pain, no SOB. Physical Exam Vital signs: Vital Signs 06/11/18 12:00 06/11/18 15:20 06/11/18 19:00 Temperature 97.7 F 97.6 F Pulse Rate 67 68 69 Respiratory Rate 16 20 22 Blood Pressure 95/53 L 106/56 L 93/44 L Pulse Oximetry 92 L 97 94 L 06/11/18 20:00 06/11/18 21:00 06/11/18 22:00 Temperature Pulse Rate 70 66 68 Respiratory Rate Blood Pressure Pulse Oximetry 94 L 06/11/18 23:00 06/12/18 00:00 06/12/18 00:40 Temperature 97.6 F Pulse Rate 77 76 Respiratory Rate 24 20 Blood Pressure 150/70 H Pulse Oximetry 95 06/12/18 01:00 06/12/18 01:41 06/12/18 02:00 Temperature Pulse Rate 68 80 Respiratory Rate Blood Pressure Pulse Oximetry 95 06/12/18 03:00 06/12/18 04:00 06/12/18 05:00 Temperature Pulse Rate 99 H 66 64 Respiratory Rate 20 Blood Pressure 95/49 L Pulse Oximetry 94 L 06/12/18 06:00 06/12/18 07:00 06/12/18 08:00 Temperature 97.7 F Pulse Rate 65 63 62 Respiratory Rate 20 Blood Pressure 92/47 L Pulse Oximetry 96 06/12/18 09:00 06/12/18 10:00 Temperature Pulse Rate 72 60 Respiratory Rate Blood Pressure Pulse Oximetry Intake & Output 06/11/18 06/12/18 06/12/18 18:59 06:59 18:59 Intake Total 1480 / 1480 1440 / 1440 Output Total 350 / 350 1125 / 1125 Balance 1130 / 1130 315 / 315 Weight 145.5 kg Intake: IV 1000 / 1000 1200 / 1200 NS Inj 1,000 ML @ 75 mls/hr IV. 1000 / 1000 1000 / 1000 CONT .[id number] [facility] Rx#:[id number] Oral 480 / 480 240 / 240 Output: Urine 350 / 350 1125 / 1125 Other: # Incontinent Voids 1 Date of Last Bowel Movement 06/10/18 06/11/18 06/11/18 # Bowel Movements 1 Narrative: GENERAL: Alert and oriented. Obese. No obvious distress. SKIN: Warm and dry. NECK: Supple, trachea midline. No JVD CARDIOVASCULAR: Regular rate and rhythm without murmurs, gallops, or rubs. RESPIRATORY: Breath sounds equal bilaterally. No accessory muscle use. GASTROINTESTINAL: Abdomen soft, non-tender. Positive bowel sounds. MUSCULOSKELETAL: No cyanosis, or edema. BACK: Nontender without obvious deformity. No CVA tenderness. Assessment and Plan - Assessment (1) Acute renal failure Code(s): N17.9 - Acute kidney failure, unspecified Status: Acute Plan: Patient has MELISA, with possible mild chronic kidney disease. Creatinine was 1.1-1.2 in 2006. Patient has MELISA, possibly pre renal and also related to NSAID. Told to avoid NSAID,continue IVF. urine sodium normal, not low. UA has no proteinuria. To avoid NSAID in the future. (2) Rheumatoid arthritis Code(s): M06.9 - Rheumatoid arthritis, unspecified Status: Acute Plan: Possibly having flare with bilateral upper extremity discomfort. (3) Chest pain Code(s): R07.9 - Chest pain, unspecified Status: Acute Plan: Complaining of intermittent chest pain. Troponin have remained negative. (4) Chronic obstructive lung disease Code(s): J44.9 - Chronic obstructive pulmonary disease, unspecified Status: Acute Plan: Has chronic shortness of breath. (5) Hypertension Code(s): I10 - Essential (primary) hypertension Status: Acute Plan: Well controlled. Not on any blood pressure medication currently.
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
[2018-06-12] MEDS ORDERED: Regadenoson Inj 0.4 MG/5 ML Syringe IV.PUSH ONE (17:38)
[2018-06-13] MEDS: Sod Chloride 0.9% Inj 1,000 ML IV.CONT SCH ×2 (04:59→10:15)
[2018-06-13] MEDS: Heparin - SQ 10,000 UNITS/ML Vial SQ SCH ×3 (05:10→21:59)
[2018-06-13 07:37] LABS: Hematocrit 38.8 % (39.0-51.0); Hemoglobin 13.4 gm/dL (13.0-17.0); Mean Corpuscular HGB Conc 34.4 % (32.0-36.0); Mean Corpuscular Hemoglobin 30.9 pg (27.0-34.0); Mean Corpuscular Volume 89.8 fL (80.0-100.0); Platelet Count 160 th/mm3 (150-450); Red Blood Count 4.32 mil/mm3 (4.50-5.90); Red Cell Distribution Width 14.7 % (11.6-17.2); White Blood Count 4.8 th/mm3 (4.0-11.0)
[2018-06-13 07:52] LABS: INR 1.1 Ratio; Prothrombin Time 10.7 sec (9.8-11.6)
[2018-06-13 08:04] LABS: Calcium 8.1 mg/dL (8.5-10.1); Carbon Dioxide 26.5 meq/L (21.0-32.0); Magnesium 1.9 mg/dL (1.5-2.5); Potassium 3.9 meq/L (3.5-5.1)
[2018-06-13] MEDS: Pantoprazole Sodium 20 MG DR Tablet PO SCH (10:20)
[2018-06-13] MEDS: Sertraline 50 MG Tablet PO SCH (10:20)
[2018-06-13] MEDS: predniSONE 5 MG Tablet PO SCH (10:20)
[2018-06-13] MEDS ORDERED: Regadenoson Inj 0.4 MG/5 ML Syringe IV.PUSH ONE (11:22)
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
--- NOTE | 2018-06-13 18:42 | P.PNNP ---
Subjective Interval history: Patient is alert, no SOB, no chest pain. Physical Exam Vital signs: Vital Signs 06/12/18 19:00 06/12/18 20:00 06/12/18 21:00 Temperature 97.4 F L Pulse Rate 62 58 L 56 L Respiratory Rate 20 Blood Pressure 113/55 L Pulse Oximetry 96 06/12/18 22:00 06/12/18 23:00 06/13/18 00:00 Temperature 97.5 F L Pulse Rate 60 58 L 59 L Respiratory Rate 16 Blood Pressure 138/60 Pulse Oximetry 96 06/13/18 01:00 06/13/18 02:00 06/13/18 03:00 Temperature 97.3 F L Pulse Rate 52 L 70 63 Respiratory Rate 14 Blood Pressure 106/49 L Pulse Oximetry 94 L 06/13/18 04:00 06/13/18 05:00 06/13/18 06:00 Temperature Pulse Rate 61 60 54 L Respiratory Rate Blood Pressure Pulse Oximetry 06/13/18 13:09 Temperature 97.5 F L Pulse Rate 62 Respiratory Rate 20 Blood Pressure 172/79 H Pulse Oximetry 96 Intake & Output 06/12/18 06/13/18 06/13/18 18:59 06:59 18:59 Intake Total 960 / 960 1480 / 1480 1000 / 1000 Output Total 750 / 750 1425 / 1425 Balance 210 / 210 55 / 55 1000 / 1000 Weight 145.5 kg Intake: IV 1000 / 1000 1000 / 1000 NS Inj 1,000 ML @ 75 mls/hr IV. 1000 / 1000 1000 / 1000 CONT .[id number] [facility] Rx#:[id number] Oral 960 / 960 480 / 480 Output: Urine 750 / 750 1425 / 1425 Other: Date of Last Bowel Movement 06/11/18 06/12/18 Narrative: Clear lungs bilaterally, unlabored breathing Heart sounds regular rate and rhythm Obese white male lying in bed Abdomen soft, nontender awake and alert, no acute distress Upper extremities appear to be normal in size with no gross edema, has intact range of motion of upper extremities Assessment and Plan - Assessment (1) Acute renal failure Code(s): N17.9 - Acute kidney failure, unspecified Status: Acute Plan: Patient has MELISA, with possible mild chronic kidney disease. Creatinine was 1.1-1.2 in 2006. Patient has MELISA, possibly pre renal and also related to NSAID. Told to avoid NSAID,continue IVF. urine sodium normal, not low. UA has no proteinuria, urine sodium was not low. To avoid NSAID in the future. Creatinine is much better. Continue IVF. (2) Rheumatoid arthritis Code(s): M06.9 - Rheumatoid arthritis, unspecified Status: Acute Plan: Possibly having flare with bilateral upper extremity discomfort. (3) Chest pain Code(s): R07.9 - Chest pain, unspecified Status: Acute Plan: Complaining of intermittent chest pain. Troponin have remained negative. (4) Chronic obstructive lung disease Code(s): J44.9 - Chronic obstructive pulmonary disease, unspecified Status: Acute Plan: Has chronic shortness of breath. (5) Hypertension Code(s): I10 - Essential (primary) hypertension Status: Acute Plan: Well controlled. Not on any blood pressure medication currently.
--- NOTE | 2018-06-13 18:55 | XR ---
EXAM DATE: 06/13/2018 6:51 PM EST AGE/SEX: 73 years / Male INDICATIONS: Right shoulder pain. No known injury. CLINICAL DATA: This is the patient's initial encounter. Patient reports that signs and symptoms have been present for 4 - 6 days and indicates a pain score of 5/10. MEDICAL/SURGICAL HISTORY: . Obesity. Smoker. COPD. Hyperlipidemia. Hypertension. Rheumatoid art hritis. None. COMPARISON: No prior exams available for comparison. FINDINGS: Multiple views of the right shoulder were obtained and demonstrate mild degenerative change in the ac romioclavicular joint. The glenohumeral joint demonstrates mild degenerative changes as well as sligh t spurring. Osseous density is normal. Soft tissues are unremarkable. No radiopaque foreign bodies seen. CONCLUSION: Mild degenerative change and a acromioclavicular joint and glenohumeral joint. Electronically signed by: Milton Fox MD Board Certified Radiologist 06/13/2018 6:54 PM EST
--- NOTE | 2018-06-13 19:15 | XR ---
EXAM DATE: 06/13/2018 7:03 PM EST AGE/SEX: 73 years / Male INDICATIONS: Left shoulder pain. No known injury. CLINICAL DATA: This is the patient's initial encounter. Patient reports that signs and symptoms have been present for 4 - 6 days and indicates a pain score of 7/10. MEDICAL/SURGICAL HISTORY: . Obesity. Smoker. COPD. Hyperlipidemia. Hypertension. Rheumatoid art hritis. None. COMPARISON: No prior exams available for comparison. FINDINGS: Multiple views of the left shoulder were obtained and demonstrate degenerative change involving the a cromioclavicular joint with sclerosis and mild spurring. There is mild degenerative change in the gle nohumeral joint is well sclerosis and mild narrowing. There is mild osteopenia with no acute fracture . The soft tissues are unremarkable. CONCLUSION: Mild degenerative change in the acromioclavicular joint and glenohumeral joints. Electronically signed by: Milton Fox MD Board Certified Radiologist 06/13/2018 7:14 PM EST
[2018-06-14 05:07] VITALS: RESP 20
[2018-06-14] MEDS: Heparin - SQ 10,000 UNITS/ML Vial SQ SCH ×2 (06:24→16:03)
[2018-06-14] MEDS: Sod Chloride 0.9% Inj 1,000 ML IV.CONT SCH ×2 (08:26→12:08)
[2018-06-14] MEDS: predniSONE 5 MG Tablet PO SCH (08:27)
[2018-06-14] MEDS: Sertraline 50 MG Tablet PO SCH (08:27)
[2018-06-14] MEDS: Pantoprazole Sodium 20 MG DR Tablet PO SCH (08:27)
--- NOTE | 2018-06-14 10:36 | NM ---
EXAM DATE: 06/14/2018 10:31 AM EST AGE/SEX: 73 years / Male INDICATIONS:Coronary artery disease. . Progressively worsening upper extremity pain for 3 months. Nec k pain and left chest pain. CLINICAL DATA: This is the patient's initial encounter. Patient reports that signs and symptoms have been present for 3 months and indicates a pain score of 7/10. MEDICAL/SURGICAL HISTORY: Rheumatoid arthritis. Chronic obstructive pulmonary disease. Hyperc holesterolemia. Hypertension. Smoker. None. COMPARISON: No prior exams available for comparison. DOSE: 32.9 mCi Tc 99m Myoview at rest 30.7 mCi [id number] at stress 0.4 mg Lexiscan STRESS SYMPTOMS: Shortness of breath. EJECTION FRACTION: 66 % TECHNIQUE: The patient underwent pharmacologic stress with infusion of prescribed dose. Continuous ECG tracing was monitored during stress. Gated SPECT imaging was performed after stress and conventi onal SPECT imaging was performed at rest. The examination was performed on a SPECT/CT scanner, both attenuation and non-corrected datasets were reviewed. Two day protocol was used. FINDINGS: Distribution: The maximum perfused segment at stress is in the lateral wall. Perfusion Study: The pattern of perfusion at stress is within normal limits. Gated Study: There are intact wall motion and wall thickening without hypokinetic or dyskinetic segm ents. The ejection fraction is calculated at 66%. RISK CATEGORY: Low (<1% Annual Motality Rate) CONCLUSION: 1. Negative examination. Electronically signed by: Dangelo Amador MD Board Certified Radiologist 06/14/2018 10:35 AM EST
[2018-06-14 12:00] VITALS: BP 137/81; TEMP 97.8; O2SAT 97
--- NOTE | 2018-06-14 13:25 | P.DCO ---
- Diagnosis (1) Acute renal failure Status: Acute (2) Chronic obstructive lung disease Status: Acute - Physical Therapy Order: Evaluate and treat - Occupational Therapy Order: Evaluate and treat - Home Health Nursing Order: Nursing assessment with vital signs - Home Health Aide Order: To assist in: Bathing and personal care, project/production manager imaging and meal prep - Marketing Finance Specialist Order: To evaluate: Living conditions/environment, Support services Order: To provide: Community services - Case Management Consult Case Management Consult-Home Health: Yes - Certification I have seen patient Domo Hawkins on 06/14/18. My clinical findings support the need for the requested home health care services because: Limited ability to care for self, Need for psychosocial assistance I certify that my clinical findings support that this patient is homebound because: Unsafe to leave home unassisted, Need for psychosocial assistance
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
[2018-06-14 15:34] VITALS: PULSE 66
--- NOTE | 2018-06-14 18:35 | P.PNNP ---
Subjective Interval history: Patient was seen in late afternoon, alert, no SOB. Physical Exam Vital signs: Vital Signs 06/13/18 19:00 06/13/18 20:00 06/13/18 20:17 Temperature 98.1 F Pulse Rate 60 64 64 Respiratory Rate 20 Blood Pressure 166/85 H Pulse Oximetry 96 96 06/13/18 21:00 06/13/18 22:00 06/13/18 23:00 Temperature 98 F Pulse Rate 61 62 62 Respiratory Rate 19 Blood Pressure 162/78 H Pulse Oximetry 96 06/14/18 00:00 06/14/18 01:00 06/14/18 02:00 Temperature Pulse Rate 61 55 L 60 Respiratory Rate Blood Pressure Pulse Oximetry 06/14/18 03:00 06/14/18 04:00 06/14/18 05:00 Temperature 98.2 F Pulse Rate 57 L 63 64 Respiratory Rate 20 Blood Pressure 147/63 H Pulse Oximetry 96 06/14/18 06:00 06/14/18 07:00 06/14/18 08:00 Temperature 98.1 F Pulse Rate 64 67 64 Respiratory Rate 20 Blood Pressure 148/65 H Pulse Oximetry 96 96 06/14/18 09:00 06/14/18 11:00 06/14/18 12:00 Temperature 97.8 F Pulse Rate 66 67 58 L Respiratory Rate 20 Blood Pressure 137/81 Pulse Oximetry 97 06/14/18 13:00 06/14/18 14:00 Temperature Pulse Rate 68 66 Respiratory Rate Blood Pressure Pulse Oximetry Intake & Output 06/13/18 06/14/18 06/14/18 18:59 06:59 18:59 Intake Total 1000 / 1000 1480 / 1480 Output Total 1025 / 1025 875 / 875 Balance -25 / -25 605 / 605 Weight 142.5 kg Intake: IV 1000 / 1000 1000 / 1000 NS Inj 1,000 ML @ 75 mls/hr IV. 1000 / 1000 1000 / 1000 CONT .[id number] [facility] Rx#:[id number] Oral 480 / 480 Output: Urine 1025 / 1025 875 / 875 Other: Date of Last Bowel Movement 06/12/18 06/14/18 Narrative: GENERAL: Patient sitting up in bed eating lunch. Appears comfortable. Alert and oriented x3. SKIN: Warm and dry. HEAD: Normocephalic. EYES: No scleral icterus. No injection or drainage. NECK: Supple, trachea midline. No JVD. CARDIOVASCULAR: Regular rate and rhythm without murmurs, gallops, or rubs. RESPIRATORY: Breath sounds equal bilaterally. No accessory muscle use. GASTROINTESTINAL: Abdomen soft, non-tender, nondistended. MUSCULOSKELETAL: No cyanosis, or edema. BACK: Nontender without obvious deformity. No CVA tenderness. Assessment and Plan - Assessment (1) Acute renal failure Code(s): N17.9 - Acute kidney failure, unspecified Status: Acute Plan: Patient has MELISA, with possible mild chronic kidney disease. Creatinine was 1.1-1.2 in 2006. Patient has MELSIA, possibly pre renal and also related to NSAID. Told to avoid NSAID,continue IVF. urine sodium normal, not low. UA has no proteinuria, urine sodium was not low. To avoid NSAID in the future. Creatinine continue to improve , now 1.1 Possibly has an element of pre renal. Has no proteinuria. For D/C home, to follow with his PCP. (2) Rheumatoid arthritis Code(s): M06.9 - Rheumatoid arthritis, unspecified Status: Acute Plan: Possibly having flare with bilateral upper extremity discomfort. (3) Chest pain Code(s): R07.9 - Chest pain, unspecified Status: Acute Plan: Complaining of intermittent chest pain. Troponin have remained negative. (4) Chronic obstructive lung disease Code(s): J44.9 - Chronic obstructive pulmonary disease, unspecified Status: Acute Plan: Has chronic shortness of breath. (5) Hypertension Code(s): I10 - Essential (primary) hypertension Status: Acute Plan: Well controlled. Not on any blood pressure medication currently.
[2018-06-16 07:50] LABS: Vitamin D 1,25-Dihydroxy 18 pg/mL (18-72)
== END 2018-06-14 17:12 | disposition home health service (06) ==
LOC: NEPC 20:43 → NEDA 06-11 02:02 → NEPGCP 06-11 03:45 → HCIS 06-11 15:09
PROVIDERS: ADMIT Internal Medicine; ATTEND Internal Medicine
DX: E78.5 Hyperlipidemia, unspecified; F17.210 Nicotine dependence, cigarettes, uncomplicated; K21.9 Gastro-esophageal reflux disease without esophagitis; F32.9 Major depressive disorder, single episode, unspecified; I10 Essential (primary) hypertension; Z74.01 Bed confinement status; Z68.41 Body mass index [BMI] 40.0-44.9, adult; R53.1 Weakness; Z88.5 Allergy status to narcotic agent; Z88.8 Allergy status to other drugs, medicaments and biological substances; Z79.899 Other long term (current) drug therapy; T39.395A Adverse effect of other nonsteroidal anti-inflammatory drugs [NSAID], initial encounter; Y92.9 Unspecified place or not applicable; E66.01 Morbid (severe) obesity due to excess calories; M47.9 Spondylosis, unspecified; N17.9 Acute kidney failure, unspecified; M06.9 Rheumatoid arthritis, unspecified; R07.89 Other chest pain; J44.9 Chronic obstructive pulmonary disease, unspecified